=== PATIENT | female | born 1970 | race Hispanic/Latino ===

== ENCOUNTER 2017-04-15 17:42 | Emergency (ER) | payer MEDICAID ==
[2017-04-15 18:23] VITALS: BP 101/68; PULSE 96; RESP 16; TEMP 97.5; O2SAT 100
[2017-04-15] MEDS ORDERED: Albuterol 0.083% Inhal Sol (2.5 mg/3 mL) UD INH STA (19:01)
--- NOTE | 2017-04-15 19:46 | ED PDOC ---
HPI: CCC, URI, Sore Throat Time Seen by Provider: 04/15/17 18:30 Chief Complaint (Nursing): Flu-like Symptoms Chief Complaint (Provider): Cough, 11 days History Per: Patient Have you had recent travel within the past 21 days to any of the following countries: [place], [place], [place] or [place]?: No Onset/Duration Of Symptoms: Days Additional Complaint(s): 46 yo female with no medical problems presents with cough x 11 dyas. Pt states she was having fever but now now howver vough continues. Pt states she has history of pneumonia. Past Medical History Reviewed: Historical Data, Nursing Documentation, Vital Signs Vital Signs: Last Vital Signs Temp 97.5 F L 04/15/17 18:18 Pulse 96 H 04/15/17 18:18 Resp 16 04/15/17 18:18 BP 101/68 04/15/17 18:18 Pulse Ox 100 04/15/17 19:46 - Medical History PMH: No Chronic Diseases - Surgical History Surgical History: No Surg Hx - Family History Family History: States: Unknown Family Hx - Home Medications Home Medications: Ambulatory Orders Medication Instructions Recorded Sulfamethoxazole/Trimethoprim 1 each PO BID #20 tablet 03/12/16 [Bactrim 400-80 mg Tablet] Azithromycin [Zithromax] 250 mg PO DAILY #6 tab 04/15/17 - Allergies Allergies/Adverse Reactions: Allergies Allergy/AdvReac Type Severity Reaction Status Date / Time No Known Allergies Allergy Verified 04/15/17 18:18 Review of Systems ROS Statement: Except As Marked, All Systems Reviewed And Found Negative Constitutional: Negative for: Fever, Chills Respiratory: Positive for: Cough. Negative for: Shortness of Breath Physical Exam - Reviewed Nursing Documentation Reviewed: Yes Vital Signs Reviewed: Yes - Physical Exam Appears: Positive for: Well, Non-toxic, No Acute Distress Head Exam: Positive for: ATRAUMATIC, NORMAL INSPECTION, NORMOCEPHALIC Skin: Positive for: Normal Color, Warm, DRY Eye Exam: Positive for: Normal appearance ENT: Positive for: Normal ENT Inspection Neck: Positive for: Normal, Painless ROM Cardiovascular/Chest: Positive for: Regular Rate, Rhythm Respiratory: Positive for: Rhonchi (Diffuse ). Negative for: Normal Breath Sounds, Accessory Muscle Use, Respiratory Distress Gastrointestinal/Abdominal: Positive for: Normal Exam, Bowel Sounds, Soft Back: Positive for: Normal Inspection Extremity: Positive for: Normal ROM Neurologic/Psych: Positive for: Alert, Oriented - ECG O2 Sat by Pulse Oximetry: 100 Medical Decision Making Medical Decision Making: CXR - [place] Disposition - Clinical Impression Clinical Impression: Cough - Patient ED Disposition Is Patient to be Admitted: No Counseled Patient/Family Regarding: Diagnosis, Need For Followup, Rx Given - Disposition Disposition: Routine/Home Disposition Time: 19:45 Condition: GOOD Prescriptions: Azithromycin [Zithromax] 250 mg PO DAILY #6 tab Instructions: Cough, Adult (DC) Forms: [employer] ([place])
--- NOTE | 2017-04-16 14:26 | RAD ---
HISTORY: cough, hx pneumonia COMPARISON: No prior. TECHNIQUE: Chest PA and lateral FINDINGS: LUNGS: Ill-defined opacity mid to lower right lung, possibly right middle lobe. Possible pneumonia. No other parenchymal abnormality identified. PLEURA: No significant pleural effusion identified. No pneumothorax apparent. CARDIOVASCULAR: Normal. OSSEOUS STRUCTURES: No significant abnormalities. VISUALIZED UPPER ABDOMEN: Normal. OTHER FINDINGS: None. IMPRESSION: Ill-defined opacity mid right lung, possibly right middle lobe infiltrate. Please correlate.
== END 2017-04-15 20:00 | disposition home or self-care (01) ==
LOC: H.ER 17:42
DX: R05 Cough (principal)